=== PATIENT | male | born 1990 | race Two or more races ===

== ENCOUNTER 2020-02-13 18:25 | Emergency (ER) | payer SELFPAY ==
[~2020-02-13] VITALS: Ht 177.8 cm; Wt 90.0 kg
--- NOTE | 2020-02-13 20:36 | NUR ---
PT STATES "I fell back at the store and hit the back of my head and now i've been vomiting and have a bad head ache." PER PT NO LOC, NO BLOOD THINNERS. NEURO EXAM UNREMARKABLE, NO SPINAL TENDERNESS. PT RESTING IN [facility], BROUGHT BACK TO ROOM VIA WC. PT'S FRIEND AT BEDSIDE.
[2020-02-13] MEDS ORDERED: HYDROcodone/APAP 5/325 TABLET PO ONE (21:30)
[2020-02-13] MEDS ORDERED: HYDROcodone/APAP 5/325 TABLET ONE (21:50)
[2020-02-13 21:54] VITALS: BP 110/68
== END 2020-02-13 22:23 | disposition home or self-care (01) ==
LOC: ED 18:55
DX: G44.319 Acute post-traumatic headache, not intractable (principal); F17.210 Nicotine dependence, cigarettes, uncomplicated; W18.09XA Striking against other object with subsequent fall, initial encounter; Y93.89 Activity, other specified; Y92.89 Other specified places as the place of occurrence of the external cause; Y99.8 Other external cause status
CPT/HCPCS: 70450; 99284; 99406